=== PATIENT | female | born 1995 | race Caucasian/White ===

== ENCOUNTER → 2020-09-12 | Outpatient (CLI) | payer MEDICAID, SELFPAY ==
[2020-09-15 03:07] LABS: Chlamydia By Nucleic Acid AMP Negative (Negative)
[2020-09-15 15:01] LABS: Gonococcus By Nucleic Acid AMP Negative (Negative)
[2020-10-02 20:34] LABS: HPV Reflexed? NOT INDICATED
== END | disposition home or self-care (01) ==
LOC: LABSPEC 16:29
PROVIDERS: Visit Provider Obstetrics & Gynecology
DX: Z12.4 Encounter for screening for malignant neoplasm of cervix (principal); Z11.3 Encounter for screening for infections with a predominantly sexual mode of transmission
CPT/HCPCS: 87491; 87591; 88175; G0145

== ENCOUNTER → 2020-10-02 16:20 | Outpatient (CLI) | payer OTHER, MEDICAID, SELFPAY ==
[2020-10-02 17:00] LABS: Absolute Lymphocyte Count 1.84 X10^3/uL (0.83-4.51); Absolute Neutrophil Count 6.1 X10^3/uL (2.0-7.7); Basophil# 0.04 X10^3/uL; Basophil% 0.5 % (0-1); Eosinophil# 0.11 X10^3/uL; Eosinophils% 1.3 % (0-5); Hematocrit 35.5 % (37-47); Lymphocyte # 1.84 X10^3/ul (0.83-4.51); Lymphocyte % 21.1 % (19-41); Mean Corp Hgb Conc 33.8 g/dL (32-36); Mean Corpuscular Volume 91.7 fL (81-99); Mean Platelet Vol. 9.2 fl (6.2-12.0); Monocyte# 0.61 X10^3/uL; NRBC Flagged by Analyzer 0 % (0-5); Neutrophil # 6.09 X10^3/uL (2.7-7.7); Neutrophil % 69.6 % (47-70); Platelet Count 304 K/mm3 (150-450); RBC Distribution Width CV 11.9 % (11.6-14.6); RBC Distribution Width SD 39.5 fl (35.1-43.9); Red Blood Count 3.87 M/mm3 (4.2-5.4); White Blood Count 8.7 K/mm3 (4.4-11.0)
[2020-10-02 17:03] LABS: Color, Urine Yellow (Yellow); Glucose, Dipstick Normal (Normal); Ketone-Dipstick Negative (Negative); Leukocyte Esterase-Dipstick 25 /ul (Negative); Nitrite-Dipstick Positive (Negative); Occult Blood-Urine Negative /ul (Negative); Protein-Dipstick Negative (Negative); Specific Gravity, Urine 1.015 (1.002-1.030); Urine Bilirubin Dipstick Negative (Negative); Urine Clarity Clear (Clear); Urine Urobilinogen Normal (Normal)
[2020-10-02 17:13] LABS: Amphetamine Urine VISTA NEGATIVE (<1000 ng/mL); Barbiturate Urine VISTA NEGATIVE (< 200 ng/mL); Benzodiazepine Urine VISTA NEGATIVE (< 200 ng/mL); Cocaine Urine VISTA NEGATIVE (< 300 ng/mL); Ecstacy Urine VISTA NEGATIVE (< 500 ng/mL); Methadone Urine VISTA NEGATIVE (< 300 ng/mL); PCP Urine VISTA NEGATIVE (< 25 ng/mL); THC Urine VISTA NEGATIVE (< 50 ng/mL); Vista UDS pH Range 7
[2020-10-02 17:23] LABS: Thyroid Stim Hormone (TSH) 0.05 uIU/mL (0.358-3.74)
[2020-10-03 08:56] LABS: HIV - WCH Non-Reactive (Nonreactive); Hepatitis B Surface Antigen Non-Reactive (Nonreactive); Hepatitis C Antibody Non-Reactive (Nonreactive); Rubella IgG Reactive (Nonreactive); Syphilis Antibodies Non-reactive
[2020-10-03 21:29] LABS: T4 Free Direct 0.82 ng/dL (0.76-1.46)
== END ==
PROVIDERS: Visit Provider Obstetrics & Gynecology
DX: Z34.81 Encounter for supervision of other normal pregnancy, first trimester (principal); E03.8 Other specified hypothyroidism
CPT/HCPCS: 36415; 80307; 81002; 84439; 84443; 85025; 86703; 86762; 86780; 86803; 87340

== ENCOUNTER 2022-02-15 19:11 | Emergency (ER) | payer MEDICAID, SELFPAY ==
[2022-02-15 19:12] VITALS: BP 139/82; PULSE 89; RESP 18; TEMP 36.6; O2SAT 97; BMI 21.2
--- NOTE | 2022-02-15 19:35 | US_ITS ---
STUDY: ULTRASOUND TRANSVAGINAL CLINICAL: Female, 26 years old. LLQ PAIN PER PT TECHNIQUE: Transvaginal COMPARISON: None. FINDINGS: Normal uterine size measuring 8.1 x 5.5 x 3.9 cm in maximal craniocaudal dimension. There are no myometrial masses. Normal endometrial thickness measuring 10 mm. There are no endometrial masses, and there is no fluid in the endometrial cavity. Normal uterine cervix. Normal right ovary, measuring 2.8 x 2.5 x 2.6 cm. There are multiple follicles without a dominant cyst. Normal left ovary, measuring 3.6 x 2.9 x 2.6 cm. There are multiple follicles without a dominant cyst. There is mild fluid in the pelvis. There is mild debris seen within the bladder possibly hemorrhagic or inflammatory. US/Transvaginal Non- IMPRESSION: Small amount of free fluid in the pelvis possibly on the basis of recent ovulation Mild debris within the bladder possibly inflammatory or hemorrhagic. Clinical correlation recommended Electronically Signed: Marcell Simon MD at 21:04 EST ,
--- NOTE | 2022-02-15 19:37 | EX.ED.DYSGE1 ---
HPI History of Present Illness Chief Complaint: Abd Pain Informant: patient Narrative Narrative: Patient's had soreness in her left lower abdomen for about a week maybe a little longer. It is a little worse when she presses. Nothing really makes it better. But she has never had fevers. She has never had nausea vomiting or change in appetite. Her bowel habits have been normal. Urinalysis has been normal. She has no vaginal bleeding or discharge. Last menstrual cycle was about 18 months ago. She delivered and has been breast-feeding since. There has been no change in the breast-feeding or reduction or cessation recently. She is not sure if she had ovarian cyst in the past but did have painful menstrual cycles and might have had cysts with some of them when she was younger PFSH PFSH Allergy/AdvReac Type Severity Reaction Status Date / Time No Known Allergies Allergy Verified 02/15/22 19:15 Social History Smoking Status: Never smoker ROS ROS ED Constitutional Constitutional ED: Denies chills, fever(s), subjective or sweats ENT ENT ED: Denies rhinorrhea or sore throat Cardiovascular Cardiovascular: Denies chest pain Respiratory/Chest Respiratory/Chest: Denies cough or dyspnea Gastrointestinal Gastrointestinal: Reports abdominal pain; Denies constipation, diarrhea, melena, nausea or vomiting Genitourinary Genitourinary ED: Denies dysuria, hematuria or urinary frequency Musculoskeletal Musculoskeletal: Denies back pain Integumentary Denies rash Neurologic Neurologic: Denies paresthesias or weakness Endocrine Endocrinology: Denies polydipsia or polyuria Hematologic/Lymphatic Hematologic/Lymphatic: Denies easy bleeding or easy bruising Allergic/Immunologic Allergic/Immunologic ED: Denies urticaria EXAM Physical Exam Const Vital Signs: 02/15/22 19:12 Temperature 97.9 F Temperature Source Temporal Pulse Rate 89 Respiratory Rate 18 Blood Pressure 139/82 H Blood Pressure Mean 101 Pulse Ox 97 Oxygen Delivery Method Room Air Positive well nourished and well developed General Appearance ED: well developed and NAD HEENT Reports moist mucous membranes Eyes General Eye ED: Negative for pale conjunctiva or scleral icterus Neck no lymphadenopathy Resp normal respiratory effort and clear to auscultation bilaterally Cardio regular rate and regular rhythm GI normal to inspection, nondistended, normoactive bowel sounds GI Narrative: Patient has some mild tenderness very low left. No rebound or guarding. I do not feel any mass. There is no tenderness or causing of pain pressing anywhere else in the abdomen. Back/Spine no CVA tenderness Extremity normal to inspection Neuro oriented x3 Psych mental status grossly normal Skin no rashes or lesions noted and no wounds MDM MDM MDM Narrative Medical decision making narrative: Ultrasound was suspicious for recent ovulation. Small amount of debris in the bladder but she is not having urinary symptoms and her urine shows no sign of infection. It is little cloudy but that is also not a clean-catch with 10-25 squamous epithelial cells. was negative. White count hemoglobin normal. Patient feels well. I think she can go home. My suspicion is she may have some soreness from this ovulation. There is no GI symptom. No discharge. No bleeding. I would not be surprised if she started her menstrual cycle in about 1 week. We did discuss follow-up with her [employer] and reasons to return. Lab Data Labs: Laboratory Results - last 24 hr 02/15/22 02/15/22 02/15/22 19:35 19:35 19:35 WBC 7.1 RBC 4.29 Hgb 13.3 Hct 39.3 MCV 91.6 MCH 31.0 MCHC 33.8 RDW Std Deviation 41.2 RDW Coeff of Albert 12.4 Plt Count 299 MPV 9.0 Immature Gran % (Auto) 0.400 Neut % (Auto) 53.4 Lymph % (Auto) 36.4 [place] % (Auto) 6.6 Eos % (Auto) 2.1 Baso % (Auto) 1.1 H Absolute Neuts (auto) 3.8 Absolute Lymphs (auto) 2.59 Nucleated RBC % 0 Serum , Qual NEGATIVE Urine Color Yellow Urine Clarity Sl. Cloudy Urine pH 6.0 Ur Specific Avery 1.025 Urine Protein 15 H Urine Glucose (UA) Normal Urine Ketones 5 H Urine Occult Blood Negative Urine Nitrite Negative Urine Bilirubin Negative Urine Urobilinogen 1 H Ur Leukocyte Esterase 25 H Urine RBC 0 SEEN Urine WBC 0-5 SEEN Ur Squamous Epith Cells 10-25 SEEN Urine Bacteria 3+ Urine Mucus 4+ Radiography Diagnostic Testing: Clinical Impression(s) from Imaging Studies Transvaginal US 02/15/22 19:35 IMPRESSION: Small amount of free fluid in the pelvis possibly on the basis of recent ovulation Mild debris within the bladder possibly inflammatory or hemorrhagic. Clinical correlation recommended Electronically Signed: Marcell Simon MD at 21:04 EST , Ultrasound showed small amount of free fluid. Possible recent ovulation. There was some mild debris in the bladder. Discharge Plan Triage Chief Complaint: Abd Pain ED Provider: Sebastien Oconnor Dx/Rx/DC Orders Clinical Impression: Pelvic pain, Ovulation pain Instructions: ED Abdominal Pain Unkn Cause Fem Primary Care Provider: Care Physician,No Primary Referrals: Irish Gomez MD [Med Staff - Active Staff] - 1 Week if not improving NOT,DEFINED [Non-Staff] - Disposition Disposition: Home, Self Care
[2022-02-15 19:47] LABS: Red Blood Cells-Urine 0 SEEN /hpf (0-5)
[2022-02-15 19:51] LABS: Absolute Lymphocyte Count 2.59 X10^3/uL (0.83-4.51); Absolute Neutrophil Count 3.8 X10^3/uL (2.0-7.7); Basophil# 0.08 X10^3/uL; Basophil% 1.1 % (0-1); Eosinophil# 0.15 X10^3/uL; Eosinophils% 2.1 % (0-5); Hematocrit 39.3 % (37-47); Hemoglobin 13.3 g/dL (12.0-15.0); Lymphocyte # 2.59 X10^3/ul (0.83-4.51); Lymphocyte % 36.4 % (19-41); Mean Corp Hgb Conc 33.8 g/dL (32-36); Mean Corpuscular Volume 91.6 fL (81-99); Monocyte# 0.47 X10^3/uL; Monocyte% 6.6 % (0-10); NRBC Flagged by Analyzer 0 % (0-5); Neutrophil # 3.79 X10^3/uL (2.7-7.7); Neutrophil % 53.4 % (47-70); Platelet Count 299 K/mm3 (150-450); RBC Distribution Width CV 12.4 % (11.6-14.6); RBC Distribution Width SD 41.2 fl (35.1-43.9); Red Blood Count 4.29 M/mm3 (4.2-5.4); White Blood Count 7.1 K/mm3 (4.4-11.0)
[2022-02-15 20:00] LABS: Color, Urine Yellow (Yellow); Glucose, Dipstick Normal (Normal); Ketone-Dipstick 5 mg/dl (Negative); Leukocyte Esterase-Dipstick 25 /ul (Negative); Nitrite-Dipstick Negative (Negative); Occult Blood-Urine Negative /ul (Negative); Protein-Dipstick 15 mg/dl (Negative); Specific Gravity, Urine 1.025 (1.002-1.030); Urine Bilirubin Dipstick Negative (Negative); Urine Clarity Sl. Cloudy (Clear); Urine Urobilinogen 1 mg/dl (Normal)
[2022-02-15 20:08] LABS: Internal QC Validated? YES +Cl - CLEAR BKGD; Pregnancy, Serum, hCG Quali. NEGATIVE Negative
[2022-02-15 20:15] LABS: Mucous, Urine 4+ /hpf (<or=2+)
[2022-02-15 20:16] LABS: Bacteria 3+ /hpf (None Seen); Squamous Epithelial Cells - UA 10-25 SEEN /hpf (5-10); White Blood Cells 0-5 SEEN /hpf (0-5)
[2022-02-15 22:36] VITALS: BP 125/77; PULSE 82; RESP 15; O2SAT 98
== END 2022-02-15 22:37 | disposition home or self-care (01) ==
PROVIDERS: Emergency Provider Emergency Medicine; Visit Provider Emergency Medicine
DX: R10.2 Pelvic and perineal pain (principal)
CPT/HCPCS: 76830; 81001; 84703; 85025; 93976; 99283